=== PATIENT | female | born 1995 | race Caucasian/White ===

== ENCOUNTER 2021-06-20 22:39 | Emergency (ER) | payer BC, OTHER ==
[2021-06-20 22:48] VITALS: BP 116/69; PULSE 68; TEMP 97.9; BMI 32.0
[2021-06-20] MEDS ORDERED: FAMOTIDINE 20 MG/50 ML IVPB 20 MG/50 ML MG IVPB ONE ×2 (23:01→23:37)
[2021-06-20] MEDS ORDERED: SODIUM CHLORIDE 1,000 ML IV STA (23:01)
[2021-06-20 23:23] LABS: BASO % 1.7 % (0-2.0); EOS % 1.4 % (0-4.5); HEMOGLOBIN 13.7 GM/dl (10.7-15.3); LYMPH % 36.4 % (8-40); MCH 29.4 pg (25.7-33.7); MCHC 32.6 g/dl (32.0-36.0); MEAN PLT VOLUME 8.2 fl (7.5-11.1); MONO % 6.1 % (3.8-10.2); NEUT % 54.4 % (42.8-82.8); PLATELET COUNT 259 10^3/uL (134-434); RBC 4.67 M/mm3 (3.60-5.2); RDW 13.9 % (11.6-15.6); WHITE BLOOD COUNT 6.3 K/mm3 (4.0-10.8)
[2021-06-20 23:42] LABS: ALBUMIN 3.6 g/dl (3.4-5.0); BILIRUBIN,TOTAL 0.5 mg/dl (0.2-1); CALCIUM 9.3 mg/dl (8.5-10); CREATININE 0.7 mg/dl (0.55-1.3); TOT PROT 6.8 g/dl (6.4-8.2)
== END 2021-06-21 00:32 | disposition home or self-care (01) ==
LOC: FER 22:39
PROC: 3E033GC Introduction of Other Therapeutic Substance into Peripheral Vein, Percutaneous Approach (ICD-10-PCS; principal; 2021-06-20)
DX: R10.13 Epigastric pain (principal)
CPT/HCPCS: 36415; 80053; 85025; 99284-25

== ENCOUNTER 2024-06-07 14:30 | Emergency (ER) | payer OTHER ==
[2024-06-07 14:43] VITALS: BP 98/64; PULSE 91; RESP 16; TEMP 98.4; BMI 30.7
[2024-06-07 14:56] LABS: HCG,QUALITATIVE URINE Negative
[2024-06-07] MEDS: SODIUM CHLORIDE 1,000 ML IV STA (15:05)
[2024-06-07 15:12] LABS: HEMATOCRIT 43.5 % (32.4-45.2); MCH 29.5 pg (25.7-33.7); MCHC 32.2 g/dl (32.0-36.0); MEAN CELL VOLUME 91.6 fl (80-96); MEAN PLT VOLUME 8.8 fl (7.5-11.1); PLATELET COUNT 270.2 10^3/uL (134-434); RBC 4.75 10^6/uL (3.60-5.2); RDW 14.6 % (11.6-15.6); WHITE BLOOD COUNT 8.1 10^3/uL (4.0-10.8)
[2024-06-07 15:20] LABS: PLATELET ESTIMATE ADEQUATE
[2024-06-07 15:27] LABS: CALCIUM 9.7 mg/dl (8.5-10.1); CREATININE 0.7 mg/dl (0.6-1.3); POTASSIUM 3.8 mmol/L (3.5-5.1)
== END 2024-06-07 16:05 | disposition home or self-care (01) ==
LOC: FER 14:30
PROC: 3E0337Z Introduction of Electrolytic and Water Balance Substance into Peripheral Vein, Percutaneous Approach (ICD-10-PCS; principal; 2024-06-07)
DX: R11.2 Nausea with vomiting, unspecified (principal); R19.7 Diarrhea, unspecified; A08.4 Viral intestinal infection, unspecified
CPT/HCPCS: 36415; 80048; 81003; 84703; 85027; 99284-25

== ENCOUNTER 2024-06-22 16:36 | Emergency (ER) | payer OTHER ==
[2024-06-22 16:53] VITALS: BP 97/65; PULSE 78; RESP 18; TEMP 98.4; BMI 30.4
[2024-06-22 18:29] LABS: EPI CELLS 20 /uL (0-25.1); HYALINE CASTS 1 /uL (0-3.1); URINE APPEARANCE CLEAR; URINE BACTERIA 8686 /uL (0-1359); URINE BILIRUBIN NEGATIVE (NEGATIVE); URINE COLOR YELLOW; URINE GLUCOSE (UA) NEGATIVE (NEGATIVE); URINE KETONE NEGATIVE (NEGATIVE); URINE LEUK ESTERASE NEGATIVE (NEGATIVE); URINE NITRITE POSITIVE (NEGATIVE); URINE PROTEIN NEGATIVE (NEGATIVE); URINE RBC 6 /uL (0-23.9); URINE WBC 16 /uL (0-25.8)
[2024-06-22 18:32] LABS: BASO % 0.4 % (0-2.0); EOS % 2.6 % (0-4.5); HEMATOCRIT 40.4 % (32.4-45.2); HEMOGLOBIN 13.1 GM/dL (10.7-15.3); LYMPH % 31.5 % (8-40); MCH 29.1 pg (25.7-33.7); MCHC 32.4 g/dl (32.0-36.0); MEAN CELL VOLUME 89.9 fl (80-96); MEAN PLT VOLUME 7.7 fl (7.5-11.1); MONO % 6.4 % (3.8-10.2); NEUT % 59.1 % (42.8-82.8); PLATELET COUNT 261 10^3/uL (134-434); RDW 14.7 % (11.6-15.6); WHITE BLOOD COUNT 7.2 K/mm3 (4.0-10.0)
[2024-06-22] MEDS: CEFUROXIME AXETIL 500 MG TABLET PO ONE (19:10)
[2024-06-22 20:04] LABS: HIV INTERPRETATION NEGATIVE (NEGATIVE)
== END 2024-06-22 19:10 | disposition home or self-care (01) ==
LOC: JER 16:36
DX: N93.9 Abnormal uterine and vaginal bleeding, unspecified (principal); N39.0 Urinary tract infection, site not specified
CPT/HCPCS: 36415; 81003; 84702; 84703; 85025; 86803; 86850; 86900; 86901; 87086; 87186; 87389; 99283-25